=== PATIENT | female | born 1990 | race Caucasian/White ===

== ENCOUNTER 2024-09-20 14:35 | Inpatient (IN) | payer BC, SELFPAY ==
[2024-09-20 08:20] VITALS: BP 129/91
--- NOTE | 2024-09-20 08:28 | ED.GENMED ---
History of Present Illness
General
Chief Complaint: Abdominal Symptoms
Source: patient
Exam Limitations: none
Time Seen by Provider: 09/20/24 08:27
Nursing documentation reviewed up to this point in time: agreed with
History of Present Illness
History of Present Illness:
33-year-old female with history of Crohn's disease, POTS, OCD presents for mucus stools, decreased appetite, pain across lower abdomen similar to her previous Crohn's flares. Symptoms started 13 days ago with increase in number of stools with mucus
and urgency to defecate to now mucus stools with 'a little blood,' and pain across her lower abdomen. Saw GI doctor at [facility] 3 days ago and started on Prednisone 40 mg daily (had 3 doses) and states it is not helping. Pain now 09/04. Denies
fever/chills. Denies n/v.
She also mentions she had two periods this month, 4 days each on 08/31 and 09/14 which hasn't happened before and she thinks it's from 'the inflamation.'
Past History
Past History
ED Past Medical History: Other (POTS, Crohn's disease)
ED Past Surgical History: Orthopedic
Social History
Tobacco: Non-smoker
Alcohol: None
Employment: Not employed
Review of Systems
Review of Systems
Allergies reviewed?: Yes
All Other Systems: ROS reviewed and negative except as documented in HPI and ROS
Constitutional: Denies fever or chills
ABD/GI: Reports abdominal pain, diarrhea ('with a little blood') and anorexia; Denies nausea or vomiting
: Denies dysuria, bleeding or discharge
Musculoskeletal: Reports no symptoms
Skin: Reports no symptoms
Neurological: Reports no symptoms
Phy Exam
Physical Exam
Physical Exam:
General: Alert, in no acute distress.
Skin: Warm, dry.
Neck: Supple
Eyes, Ears, Nose, Mouth, and Throat: Oral mucosa moist.
Cardiovascular: Normal peripheral perfusion, no edema.
Respiratory: Respirations are non-labored.
Gastrointestinal: Soft, Abdomen nondistended; tender throughout the lower gastrointestinal region
Back: Normal range of motion, normal alignment.
Musculoskeletal: Normal range of motion, normal strength.
Neurological: Alert and oriented to person, place, time, and situation, no focal neurological deficit observed.
Psychiatric: Cooperative, appropriate mood and affect.
Course
Orders/Labs/Results
Orders:
Orders
09/20/24 Breakfast
Full Liquids
At Your Request: Full Participation
Does patient need a safe tray?: No
09/20/24 08:39
Test Result ONCE
09/20/24 08:40
0.9% Sodium Chloride 1000 ml [Nss] 1,000 ml IV BOLUS
09/20/24 08:55
C-Reactive Protein Urgent
Comment: ADD ON
Complete Blood Count/With Diff Urgent
Comprehensive Metabolic Panel Urgent
HCG, Serum Qualitative Screen Urgent
Urinalysis Reflex To Culture Urgent
Date Specimen was Collected: 09/20/24
Time Specimen was Collected: 08:53
09/20/24 08:58
Dexamethasone Sod Phosphate [Decadron] 20 mg .ROUTE .STK-MED ONE
09/20/24 10:09
CT Abd/pelvis W Iv Cont Urgent
Comment: Pt refusing po contrast, it 'aggravates' her bowel
Reason For Exam: pain, Crohn's,
09/20/24 10:10
Add On- LAB Urgent
Tests Added?: CRP
09/20/24 13:46
Tramadol HCl [Ultram] 50 mg PO NOW STA
09/20/24 13:49
GASTROINTESTINAL CONSULT Routine
Consulting Provider: Ronaldo Chu
Was physician already notified: Yes
Reason for consult: Crohn's flare
09/20/24 13:50
Admit/Transfer Patient As Directed
Co-Sign Provider:
Level of Care: Inpatient admission
Assign to:: Medical/Surgical
Physician / Group: Rafaela Bowden
Diagnosis: Crohn's Flare failed outpt treatment
Reason for Hospitalization: Crohn's Flare failed outpt treatment
Expected length of stay greater than two midnights?: Yes
ELOS- Estimated Length of Stay in days: 2
I certify the patient meets the requirements for IP care: Yes
PRN Pain Medication Management As Directed
May give lesser potent ordered pain med per pt: Yes
preference::
Protocol:: Medication orders for pain may be administered in a
manner that supports deferring to patient preference
when the pt is:
- Requesting an ordered lesser potent pain medication.
Least to most potent pain medications are defined
as: acetaminophen < NSAID < tramadol < opioids
(morphine, oxycodone, hydromorphone).
- Requesting a lesser dose of the same medication IF
ORDERED.
- Requesting a less intrusive route of administration
if both routes are prescribed by the provider (PO <
IV).
09/20/24 13:56
Code Status As Directed
Resuscitation Status: Full Code
09/20/24 14:00
Dexamethasone Sod Phosphate [Decadron] 4 mg IV Q6H
09/20/24 16:00
Acetaminophen [Tylenol] 650 mg PO Q4HWA
Abnormal Lab Results
09/20/24
08:55
WBC 11.0 H 10^3/uL
(4.8-10.8)
MCH 31.7 H pg
(27.0-31.0)
MPV 10.9 H fL
(7.4-10.4)
Abs Immat Gran (auto) 0.1 H 10^3/uL
(0-0.05)
Absolute Neuts (auto) 8.3 H 10^3/uL
(1.4-6.5)
Absolute Monos (auto) 0.9 H 10^3/uL
(0.1-0.6)
Lymphocytes % 15.8 L %
(20.5-51.1)
Glucose 100 H mg/dl
(70-99)
09/20/24 08:55
09/20/24 08:55
Vital Signs
Initial and Last Documented VS:
Initial Vital Signs
Temp Pulse Resp BP Pulse Ox
97.8 F 68 16 129/91 98
09/20/24 08:20 09/20/24 08:20 09/20/24 08:20 09/20/24 08:20 09/20/24 08:20
Last Documented Vital Signs
Temp Pulse Resp BP Pulse Ox
97.8 F 68 16 99/63 98
09/20/24 08:20 09/20/24 08:20 09/20/24 08:20 09/20/24 10:00 09/20/24 10:00
MDM/Problems Addressed
Differential Diagnosis Includes:
The Differential Diagnosis includes, in no particular order and is not limited to:
- Crohns disease exacerbation
- Ulcerative colitis
- Infectious colitis
- Irritable bowel syndrome
- Diverticulitis
- Celiac disease
- Gastroenteritis
- Ischemic colitis
- Inflammatory bowel disease
MDM/Problems Addressed:
33-year-old female with history of Crohn's disease, POTS, OCD presents for mucus stools, decreased appetite, pain across lower abdomen similar to her previous Crohn's flares. Symptoms started 13 days ago with increase in number of stools with mucus
and urgency to defecate to now mucus stools with 'a little blood,' and pain across her lower abdomen. Saw GI doctor at [facility] 3 days ago and started on Prednisone 40 mg daily (had 3 doses) and states it is not helping. Pain now 09/04. Denies
fever/chills. Denies n/v.
She also mentions she had two periods this month, 4 days each on 08/31 and 09/14 which hasn't happened before and she thinks it's from 'the inflammation.'
Afebrile, NAD
Plan:
- Blood work to assess for dehydration or malnutrition, with potential administration of intravenous fluids.
- Consider administration of intravenous Decadron if deemed necessary following lab results.
CBC with no clinically significant abnormality
CMP normal
hCG negative
11:[address] abdomen pelvis with IV only contrast radiology report reviewed: IMPRESSION: Mild to moderate wall thickening diffusely involving the entire colon, with stranding of the adjacent fat. These findings are compatible with colitis, which is most
likely on the basis of inflammatory bowel disease. Infectious colitis would be a differential consideration.
No gross evidence for small bowel wall thickening, given the limitation of a lack of GI luminal contrast agent.
There appears to be thickening of the gastric wall, suggestive of gastritis, most likely on the basis of inflammatory bowel disease.
No evidence for bowel obstruction or free intraperitoneal air.
Small amount of free fluid within the pelvis.
Periportal edema is present, most commonly seen with intravenous fluid administration in young patient. Main differential consideration of hepatocellular dysfunction.
Plan: Admit: Crohn's flare, failing out patient steroids.
Hospitalist notified of admission.
*Pulse Oximetry
SaO2: 98
Oxygen Mode of Delivery: Room air
Patient hypoxic: not evaluated
*Critical Care Note
Total Time (30-74mins, 75-104mins- exclusive of procedures): Not Applicable
ED Attending Note
-
Portions of this chart may have been created with voice recognition software.� Occasional wrong word or��sound alike� substitutions may have occurred due to the inherent limitations of voice recognition software.
Discharge Plan
Departure
Patient Disposition: Admit
Date of Disposition: 09/20/24
Time of Disposition: 11:15
Admit to: Med/Surg
Presentation/result/management discussed w/ accepting MD/DO: Hospitalist
Condition: Fair
Discharge Problem:
Crohn's colitis
Interventions
Interventions:
*Risk Screen - Suicide Last Done: 09/20/24 08:20
*Neglect/Abuse Screening Last Done: 09/20/24 08:20
[2024-09-20 09:02] LABS: Hematocrit 39.7 % (37.0-47.0); Hemoglobin 13.7 g/dL (12.0-16.0); Mean Corp Hgb Conc. 34.5 g/dL (33.0-37.0); Mean Corpuscular Volume 91.9 fL (81.0-99.0); Nucleated Red Blood Cells % 0 %; Platelet Count 213 10^3/uL (130-400); Red Cell Dist. Width 11.8 % (11.5-14.5)
[2024-09-20 09:20] LABS: HCG, Serum Qualitative Screen Negative
[2024-09-20 09:32] LABS: ALT (SGPT) 20 U/L (0-35); AST (SGOT) 24 U/L (14-36); Albumin 4.9 g/dl (3.5-5.0); Alkaline Phosphatase 57 U/L (38-126); Blood Urea Nitrogen 12 mg/dl (7-17); Calcium 9.6 mg/dl (8.4-10.2); Carbon Dioxide 30 mmol/L (22-30); Chloride 100 mmol/L (98-107); Glucose 100 mg/dl (70-99); Potassium 3.9 mmol/L (3.5-5.1); Sodium 138 mmol/L (135-145); Total Protein 8.0 g/dl (6.3-8.2); eGFR > 60.00
[2024-09-20 10:00] VITALS: BP 99/63
[2024-09-20 10:21] LABS: Urine Character Clear (Clear)
[2024-09-20] MEDS: NSS 1000 IV (11:16)
--- NOTE | 2024-09-20 11:31 | HPS.HSE ---
Family Physician
-
Family Physician: Osman Eli
Chief Complaint
-
Abd pain
History of Present Illness
33F Crohn's disease, POTS, OCD presents for mucus stools, decreased appetite, pain across lower abdomen similar to her previous Crohn's flares. Symptoms started 13 days ago with increase in number of stools mucus and urgency to defecate. Notes some
light blood streaks on wiping. Saw GI doctor at [place] 3 days ago and was started on Prednisone 40 mg daily. Noted no relief, prompting ED visit. VSS on room air. Mild leukocytosis (not unexpected with steroid use) otherwise labs unremarkable. CT
suggestive colitis
Medical History
Past Medical History
Past Medical History: Reports Other
Additional Past Medical History:
as above
Past Surgical History: Reports Other
Additional Past Surgical History:
as above
Social History
Tobacco: Non-smoker
Alcohol: None
Drug: None
Personal:
Living: With Family
Family History
Family History: Not pertinent (reviewed)
Allergies / Home Medications
Allergies reflects when Allergies were last updated in [facility].
Home Medications with original date entered in [facility]
Allergy/Medication List:
Allergies
Allergy/AdvReac Type Severity Reaction Status Date / Time
NSAIDS (Non-Steroidal Allergy Severe Swelling Verified 09/20/24 08:19
Anti-Inflamma
aspirin Allergy Swelling Verified 09/20/24 08:19
Home Medications
Lactobac no.2-Bifidobac no.1-S. thermo 112.5 billion cell capsule (Visbiome) 1 cap PO DAILY 09/20/24
Ladywell Daily Hormone Balance 2 cap PO DAILY 09/20/24
acetaminophen 500 mg tablet 1,000 mg PO DAILYPRN PRN mild pain 09/20/24
dicyclomine 10 mg capsule 10 mg PO QIDPRN PRN cramps 09/20/24
diphenhydramine HCl 25 mg capsule (Benadryl) 25 mg PO HS 09/20/24
fexofenadine 180 mg tablet 180 mg PO DAILY 09/20/24
guselkumab 200 mg/2 mL subcutaneous pen injector (Tremfya Pen) 400 mg SC Q4W 09/20/24
ou-cbl-xajjx 120 mcg-biotin 1,250 mcg-K1 60 nsy-zdartihy-pijh capsule (Hair, Skin And Nails (Herbs)) 1 cap PO DAILY 09/20/24
omega 7-xxd-oks-fish oil 900 mg-1,400 mg capsule,delayed release 1 cap PO DAILY 09/20/24
peppermint oil 90 mg capsule,delayed,extended release (IBgard) 90 mg PO DAILY 09/20/24
prednisone 10 mg tablet 40 mg PO DAILYPRN PRN crohn's flare 09/20/24
vits no.133-ferrous fumarate 28 mg-folic acid 800 mcg tablet () 1 tab PO DAILY 09/20/24
sertraline 25 mg tablet 25 mg PO DAILYPRN PRN nausea 09/20/24
triamcinolone acetonide 0.1 % topical cream 1 applic topical BIDPRN PRN rash 09/20/24
turmeric 400 mg capsule 400 mg PO DAILY 09/20/24
zinc gluconate 30 mg tablet 30 mg PO DAILY 09/20/24
Review of Systems
-
A 12 point ROS was completed and negative except as noted: Yes
Constitutional: Reports Other (as below)
Physical Exam
Vital Signs
Vital Signs
Temp Pulse Resp BP Pulse Ox
97.8 F 68 16 129/91 98
09/20/24 08:20 09/20/24 08:20 09/20/24 08:20 09/20/24 08:20 09/20/24 08:29
Physical Exam
General: Other (as below)
Laboratory Results
-
09/20/24 08:55
09/20/24 08:55
Laboratory Results
Total Bilirubin 0.4 mg/dl (0.2-1.3) 09/20/24 08:55
AST 24 U/L (14-36) 09/20/24 08:55
ALT 20 U/L (0-35) 09/20/24 08:55
Alkaline Phosphatase 57 U/L (38-126) 09/20/24 08:55
Impression/Plan
-
ROS
General: Denies fever chills night sweats unexpected weight loss
Neuro: Denies seizure shaking loss of consciousness dizziness vertigo
Psych: denies depression hallucinations confusion manic episodes
Endocrine: Denies polyuria polydipsia polyphagia heat/cold intolerance
HEENT: Denies blindness visual disturbances epistaxis
Pulmonary: denies coughing hemoptysis sneezing sob dyspnea on exertion
Cardiovascular: denies chest pain palpitations leg swelling
Hematology: denies signs symptoms of anemia easy bruising/bleeding
Gastrointestinal: reports abd pain diarrhea, notes light blood streaks on wiping, intermittent nausea no vomiting,
Genito-Urinary: denies retention incontinence dysuria
Musculoskeletal: denies joint pain weakness
Dermatology: denies rash laceration bruising
Physical Exam
General: No pallor, cyanosis, or jaundice.
HEENT: Throat clear. PERRLA Normocephalic atraumatic
NECK: Supple. No JVD Carotid Bruits
RESPIRATORY: Lungs clear to auscultation. No crackles wheezes stridor
CVS: S1, S2 normal. RRR. No murmur, rub or gallop.
ABDOMEN: Soft, no distension, tenderness, decreased bowel sounds
EXTREMITIES: No peripheral cyanosis or edema.
ENDOSCOPY SPECIALTY TECHNICIAN: AOx3 Conversant Coherent
IMPRESSION:
33F Crohn's disease, POTS, OCD presents for mucus stools, decreased appetite, pain across lower abdomen similar to her previous Crohn's flares. Symptoms started 13 days ago with increase in number of stools mucus and urgency to defecate. Notes some
light blood streaks on wiping. Saw GI doctor at [place] 3 days ago and was started on Prednisone 40 mg daily. Noted no relief, prompting ED visit. VSS on room air. Mild leukocytosis (not unexpected with steroid use) otherwise labs unremarkable. CT
suggestive colitis
PLAN:
#Crohn's Flare failed outpt tx
med/surg
pain control Tylenol 650 mg Q4HWA, Tramadol prn mod severe pain, Dilaudid severe breakthrough pain
IV Decadron 4 mg Q6H
GI eval
Full Liquid Diet
Bentyl prn cramping
DVT ppx SCDs/encourage ambulation
GI ppx Protonix
Full Code
I spent a total of 80 minutes with the patient or on the floor. More than 50% of this time involved counseling and coordination of care.
[2024-09-20 12:27] LABS: C-Reactive Protein < 5.00 mg/L (0.0-10.00)
--- NOTE | 2024-09-20 14:29 | CM ---
CM reviewed chart and met with pt bedside in ED. Lives with in 2 story home, 2 CAMMY, half BA first floor, full flight of steps to second floor BR/full BA.
Independent in ADLs, personal care and ambulation at baseline.
HX VN for home infusion, no hx SNF, confirms prescription coverage.
PCP: Osman Eli. Also see Dr. Armstrong at [facility]
Pharmacy: [address] [place]
CM will continue to follow for any discharge planning needs.
[2024-09-20] MEDS: DECADRON 4 MG IV (14:45)
[2024-09-20] MEDS: ULTRAM 50 MG PO ×2 (14:45→23:21)
[2024-09-20 16:00] VITALS: BP 125/81
--- NOTE | 2024-09-20 16:30 | CON.GI ---
Consultation
-
Date/Time Consultation Requested: 09/20/2024, 1349
Date/Time Consultation Performed: 09/20/2024, 1630
Requesting Provider: Rafaela Bowden MD
Performing Provider: Ronaldo Chu DO
Reason for Consultation: Crohn's Flare
Medical History
Chief Complaint / HPI
Chief Complaint: Abdominal symptoms
History of Present Illness:
Ms Sutton is a 33 y.o female with a past medical history of OCD, POTS, and Crohn's colitis (diagnosed 11 years ago, recently started on Tremfya08/27/2024) who presented to the ED with abdominal pain and diarrhea. Found to have mild to moderate wall
thickening throughout the entire colon concerning for Crohn's flare for which GI has been consulted for further evaluation and management.
No prior GI records available for review thus history largely obtained in discussing with patient at bedside. Patient states longstanding Crohn's disease diagnosed approximate 11 years ago which was previously well-controlled on Stelara for several
years. She follows Dr. Armstrong at [facility] who is her primary food counselor/IBD doctor. She notes she was on Stelara from 2017 up till about 2023 where her disease was in remission in regards to her Crohn's colitis. However, eventually had
recurrent disease activity where her Stelara was eventually stopped and she was previously tried on Cimzia as well as Skyrizi. However, she failed both of these and was eventually started on RINVOQ around November 2023 with eventual remission.
However, she was trying to become again as she previously had a miscarriage in the past. In discussion with her IBD doctor in hopes of eventually becoming , she stopped her written RINVOQ around mid August and was started on Tremfya
on 08/27/2024. She notes about 1-2 weeks later after stopping her RINVOQ, she developed lower abdominal discomfort as well as loose, nonbloody watery stools. She previously followed up with Dr. Armstrong this past and was started on prednisone
40 mg once daily in hopes of getting her symptoms under control given her recently started Tremfya but not felt to represent a treatment failure as she only received her first induction dose back on 08/27/2024. Given her ongoing bowel movements (up
to 15 yesterday), poor p.o. intake as well as her lower abdominal pain consistent with her previous Crohn's flares she came into the ED for further evaluation as she notes previously responding well to IV steroids in the past. Denies any prior
history of C Diff. Otherwise, she denies any sick contact or other fevers, chills or other constitutional symptoms.
In the ED, patient was afebrile and HD-stable. Labs notable for BUN 12, [employer] 0.7 and normal LFTs including albumin 4.9. UA negative. CBC with WBC 11k, Hgb 13.7, and plts 213. CT Abd/pelvis revealed mild to moderate wall thickening involving the
entire colon, with stranding of the adjacent fat. These findings are are compatible with colitis, felt to be IBD versus infectious. Otherwise, no SB wall thickening. Additionally, found to have thickening of the gastric wall suggestive of gastritis
suspicious for IBD along with periportal edema.
Past Medical History
Past Medical History: Other (Crohn's colitis, OCD, POTS)
Past Surgical History: None
Social History
Tobacco: Non-Smoker
Alcohol: None
Personal:
Living: With Family
Family History
Family History: Reviewed & Not Pertinent
Allergies / Home Medications
Allergy/AdvReac Type Severity Reaction Status Date / Time
NSAIDS (Non-Steroidal Allergy Severe Swelling Verified 09/20/24 08:19
Anti-Inflamma
aspirin Allergy Swelling Verified 09/20/24 08:19
�Medication �Instructions �Recorded
Lactobac no.2-Bifidobac no.1-S. 1 cap PO DAILY Supplement 09/20/24
thermo 112.5 billion cell capsule
(Visbiome)
Ladywell Daily Hormone Balance 2 cap PO DAILY Supplement 09/20/24
acetaminophen 500 mg tablet 1,000 mg PO DAILYPRN PRN mild pain 09/20/24
dicyclomine 10 mg capsule 10 mg PO QIDPRN PRN cramps 09/20/24
diphenhydramine HCl 25 mg capsule 25 mg PO HS Sleep 09/20/24
(Benadryl)
fexofenadine 180 mg tablet 180 mg PO DAILY Allergies 09/20/24
guselkumab 200 mg/2 mL 400 mg SC Q4W Crohn's Disease 09/20/24
subcutaneous pen injector (Tremfya
Pen)
ed-hiw-jqfos 120 mcg-biotin 1,250 1 cap PO DAILY Supplement 09/20/24
mcg-K1 60 toh-cwvqbyuy-xiyy
capsule (Hair, Skin And Nails
(Herbs))
omega 3-lge-xvg-fish oil 900 1 cap PO DAILY Supplement 09/20/24
mg-1,400 mg capsule,delayed release
peppermint oil 90 mg 90 mg PO DAILY Supplement 09/20/24
capsule,delayed,extended release
(IBgard)
prednisone 10 mg tablet 40 mg PO DAILYPRN PRN crohn's flare 09/20/24
vits no.133-ferrous 1 tab PO DAILY Supplement 09/20/24
fumarate 28 mg-folic acid 800 mcg
tablet ()
sertraline 25 mg tablet 25 mg PO DAILYPRN PRN nausea 09/20/24
triamcinolone acetonide 0.1 % 1 applic topical BIDPRN PRN rash 09/20/24
topical cream
turmeric 400 mg capsule 400 mg PO DAILY Supplement 09/20/24
zinc gluconate 30 mg tablet 30 mg PO DAILY Supplement 09/20/24
Review of Systems
-
All other systems: A 12 pt ROS was Negative except as stated above in HPI
Vital Signs
Temp Pulse Resp BP Pulse Ox
97.8 F 68 16 99/63 98
09/20/24 08:20 09/20/24 08:20 09/20/24 08:20 09/20/24 10:00 09/20/24 10:00
Physical Exam
Exam
General: Well Developed, No Apparent Distress and Comfortable
HEENT: Anicteric and Moist Mucous Membranes
Respiratory: Other (Normal WOB on room air)
Cardiac: Other (RR on tele)
GI: Soft, Non Distended and Tender (Mild tenderness throughout without any involuntary guarding or rebound tenderness)
Skin: Warm and Dry
Neuro: AO x 3 and Nonfocal/Grossly Intact
Psych: Calm
Results
WBC 11.0 10^3/uL (4.8-10.8) H 09/20/24 08:55
Hgb 13.7 g/dL (12.0-16.0) 09/20/24 08:55
Hct 39.7 % (37.0-47.0) 09/20/24 08:55
MCV 91.9 fL (81.0-99.0) 09/20/24 08:55
Plt Count 213 10^3/uL (130-400) 09/20/24 08:55
Absolute Neuts (auto) 8.3 10^3/uL (1.4-6.5) H 09/20/24 08:55
Sodium 138 mmol/L (135-145) 09/20/24 08:55
Potassium 3.9 mmol/L (3.5-5.1) 09/20/24 08:55
Chloride 100 mmol/L (98-107) 09/20/24 08:55
Carbon Dioxide 30 mmol/L (22-30) 09/20/24 08:55
BUN 12 mg/dl (7-17) 09/20/24 08:55
Creatinine 0.7 mg/dL (0.6-1.0) 09/20/24 08:55
Calcium 9.6 mg/dl (8.4-10.2) 09/20/24 08:55
Total Bilirubin 0.4 mg/dl (0.2-1.3) 09/20/24 08:55
AST 24 U/L (14-36) 09/20/24 08:55
ALT 20 U/L (0-35) 09/20/24 08:55
Alkaline Phosphatase 57 U/L (38-126) 09/20/24 08:55
Diagnostic Image Results: CT imaging reviewed as detailed above. No prior EGD/Colon records available for review
Assessment / Plan
-
Ms Sutton is a 33 y.o female with a past medical history of OCD, POTS, and Crohn's colitis (diagnosed 11 years ago, recently started on Tremfya08/27/2024) who presented to the ED with abdominal pain and diarrhea. Found to have mild to moderate wall
thickening throughout the entire colon concerning for Crohn's flare for which GI has been consulted for further evaluation and management.
#Abdominal Pain #Diarrhea 03/30
#Crohn's Flare
#Hx of Crohn's Colitis (dx 11 years ago, recently started on Tremfya 08/2024)
Impression: Patient presenting with symptoms consistent with her Crohn's flare in setting of recently stopping her RINVOQ (mid-August) and starting Tremfya on 08/27/2024. She was previously in remission with RINVOQ in the past which was started back
on 11/2023. However, in hopes of becoming again (as she has had prior miscarriage in the past) her RINVOQ was discontinued as contraindicated in and was started on Tremfya. Would not consider this a treatment failure as she only
received her first induction dose back on 08/27/2024. Was started on oral Prednisone 40 mg as an outpatient earlier this week but having ongoing symptoms necessitating inpatient need for IV steroids. CT imaging with mild to moderate wall thickening
involving the entire colon consistent with pancolitis on admission. Mild leukocytosis and possibly from her previous oral steroids. Favor ongoing treatment with IV steroids while ruling out infectious causes although seems much less likely and
consistent with worsening disease activity secondary to stopping her RINVOQ and starting her Tremfya (anti-IL23). Of note, no prior history of C. difficile in the past.
Recommendations:
- Okay with CLD
- Check stool studies: stool culture, stool O&P, C Diff
- Start IV Methylpred 20 mg TiD
- Empiric PPI 40 mg BiD given mild gastritis noted on CT imaging
- Monitor leukocytosis, defer antibiotics at this time and likely reactive versus steroid-induced from her prior oral steroids
- Trend serial CRPs q 48 hrs
- No plans for any flex-sig/colonoscopy at this time
- She will be due for her next dose of Temfya next Sunday on 09/24 and hopeful for discharge prior to this so she may receive her second dose of induction therapy
- Will discuss with her IBD physician (Dr. Armstrong) early next week as well
- Minimize opioids as much as possible, okay with Bentyl and standing acetaminophen
- Ensure chemical VTE ppx while inpatient given IBD
- Rest of care as per primary team
GI will continue to follow. Discussed with primary internal medicine. Please call with any questions/concerns.
Data Reviewed
-
Radiology: Image Personally Visualized and interpreted and Report Reviewed by me
CT Scan: Image Personally Visualized and interpreted and Report Reviewed by me
-
-
Thank you for consultation and allowing me to participate in the patient's care. Please call the stoner out GI physician during the after hours with any questions or concerns.
[2024-09-20 18:00] VITALS: BP 129/75
[2024-09-20] MEDS: TYLENOL 650 MG PO ×2 (18:25→23:21)
[2024-09-20] MEDS: SOLU-MEDROL PF 20 MG IV ×2 (18:26→23:15)
[2024-09-20 19:32] VITALS: BP 116/75
[2024-09-20] MEDS: TYLENOL PO (19:36)
[2024-09-20] MEDS: NSS (PRESERVATIVE FREE) 10 ML IV (20:28)
[2024-09-20] MEDS: LOVENOX 40 MG SC (20:28)
[2024-09-20] MEDS: PROTONIX IV 40 MG IV (20:28)
[2024-09-20] MEDS: BENADRYL 25 MG PO (22:24)
[2024-09-20 23:23] VITALS: BP 117/67
[2024-09-21] MEDS: TYLENOL PO ×2 (04:38→12:47)
--- NOTE | 2024-09-21 05:51 | W.PN.GI.CBS2 ---
Today's Communication / Plan
-
Continue IV steroids while inpatient and favor for at least 48-72 hours of IV steroids prior to transitioning back to oral prednisone. Much less likely C Diff, but send stool studies once able to have BM. See rest of care as outlined below.
Assessment / Plan
-
Ms Sutton is a 33 y.o female with a past medical history of OCD, POTS, and Crohn's colitis (diagnosed 11 years ago, recently started on Tremfya08/27/2024) who presented to the ED with abdominal pain and diarrhea. Found to have mild to moderate wall
thickening throughout the entire colon concerning for Crohn's flare for which GI has been consulted for further evaluation and management.
#Abdominal Pain #Diarrhea 03/30
#Crohn's Flare
#Hx of Crohn's Colitis (dx 11 years ago, recently started on Tremfya 08/2024)
Impression: Patient presenting with symptoms consistent with her Crohn's flare in setting of recently stopping her RINVOQ (mid-August) and starting Tremfya on 08/27/2024. She was previously in remission with RINVOQ in the past which was started back
on 11/2023. However, in hopes of becoming again (as she has had prior miscarriage in the past) her RINVOQ was discontinued as contraindicated in and was started on Tremfya. Would not consider this a treatment failure as she only
received her first induction dose back on 08/27/2024. Was started on oral Prednisone 40 mg as an outpatient earlier this week but having ongoing symptoms necessitating inpatient need for IV steroids. CT imaging with mild to moderate wall thickening
involving the entire colon consistent with pancolitis on admission. Mild leukocytosis and possibly from her previous oral steroids. Favor ongoing treatment with IV steroids while ruling out infectious causes although seems much less likely and
consistent with worsening disease activity secondary to stopping her RINVOQ and starting her Tremfya (anti-IL23). Of note, no prior history of C. difficile in the past.
Recommendations:
- Okay with CLD, may advance slowly as tolerated
- Check stool studies: stool culture, stool O&P, C Diff- once patient is able to have a BM
- Continue IV Methylpred 20 mg TiD (09/20- )
- Empiric PPI 40 mg BiD given mild gastritis noted on CT imaging
- Monitor leukocytosis, defer antibiotics at this time and likely reactive versus steroid-induced from her prior oral steroids
- Trend serial CRPs q 48 hrs
- No plans for any flex-sig/colonoscopy at this time
- She will be due for her next dose of Temfya (injection) next Sunday on 09/24 and hopeful for discharge prior to this so she may receive her second dose of induction therapy
- Will discuss with her IBD physician (Dr. Armstrong) early next week as well
- Minimize opioids as much as possible, okay with Bentyl and standing acetaminophen
- Ensure chemical VTE ppx while inpatient given IBD
- Rest of care as per primary team
GI will continue to follow. Please call with any questions/concerns.
Subjective
Subjective
Date of Service: September 21, 2024
- Started on IV Methylpred 20 mg TiD on 09/20-
- Otherwise, no acute events overnight
Feeling well, resting comfortably. Still with mild lower abdominal pain but denies any worsening symptoms. Using heating pad this AM which seems to help. No recent diarrhea overnight or this AM.
Objective
Data Reviewed
Laboratory Data:
Laboratory Results
Total Bilirubin 0.4 mg/dl (0.2-1.3) 09/20/24 08:55
AST 24 U/L (14-36) 09/20/24 08:55
ALT 20 U/L (0-35) 09/20/24 08:55
Alkaline Phosphatase 57 U/L (38-126) 09/20/24 08:55
Vital Signs and I&O:
Vital Signs
Temp Pulse Resp BP Pulse Ox
98 F 67 18 117/67 100
09/20/24 23:23 09/20/24 23:23 09/20/24 23:23 09/20/24 23:23 09/21/24 00:49
Physical Exam
Physical Exam
HEENT: Anicteric and Moist mucous membranes
Pulmonary: Other (Normal WOB on room air)
GI: Soft, Non Distended and Tender (Mild tenderness to palpation but without any rebound or involuntary guarding)
Extremities: No Edema
Neuro: Non Focal
[2024-09-21 07:17] LABS: Hematocrit 37.1 % (37.0-47.0); Hemoglobin 13.0 g/dL (12.0-16.0); Mean Corp Hgb Conc. 35.0 g/dL (33.0-37.0); Mean Corpuscular Volume 92.8 fL (81.0-99.0); Platelet Count 222 10^3/uL (130-400); Red Cell Dist. Width 11.6 % (11.5-14.5)
[2024-09-21 07:44] LABS: ALT (SGPT) 16 U/L (0-35); AST (SGOT) 20 U/L (14-36); Albumin 4.2 g/dl (3.5-5.0); Alkaline Phosphatase 52 U/L (38-126); Blood Urea Nitrogen 10 mg/dl (7-17); Calcium 9.3 mg/dl (8.4-10.2); Carbon Dioxide 27 mmol/L (22-30); Chloride 104 mmol/L (98-107); Glucose 122 mg/dl (70-99); Magnesium 2.2 mg/dl (1.6-2.3); Potassium 4.1 mmol/L (3.5-5.1); Sodium 138 mmol/L (135-145); Total Protein 6.8 g/dl (6.3-8.2); eGFR > 60.00
--- NOTE | 2024-09-21 07:49 | W.PN.HOSP.TC ---
Today's Communication/Plan
-
steroids PPI as per GI
Full Liquid diet, ok to advance as tolerated
Pain control
Follow stool studies
Assessment / Plan
Assessment / Plan
Physical Exam
General: No pallor, cyanosis, or jaundice.
HEENT: Throat clear. PERRLA Normocephalic atraumatic
NECK: Supple. No JVD Carotid Bruits
RESPIRATORY: Lungs clear to auscultation. No crackles wheezes stridor
CVS: S1, S2 normal. RRR. No murmur, rub or gallop.
ABDOMEN: Soft, no distension, tenderness, decreased bowel sounds
EXTREMITIES: No peripheral cyanosis or edema.
PATIENT PORTAL CONCIERGE: AOx3 Conversant Coherent
IMPRESSION:
33F Crohn's disease, POTS, OCD presents for mucus stools, decreased appetite, pain across lower abdomen similar to her previous Crohn's flares. Symptoms started 13 days ago with increase in number of stools mucus and urgency to defecate. Notes some
light blood streaks on wiping. Saw GI doctor at [place] 3 days ago and was started on Prednisone 40 mg daily. Noted no relief, prompting ED visit. VSS on room air. Mild leukocytosis (not unexpected with steroid use) otherwise labs unremarkable. CT
suggestive colitis
PLAN:
#Crohn's Flare failed outpt tx
med/surg
pain control Tylenol 650 mg Q4HWA, Tramadol prn mod severe pain, Dilaudid severe breakthrough pain
Bentyl prn cramping
GI eval appreciated solumedrol IV 20 mg TID, PPI BID
Full Liquid Diet for now, ok to advance as tolerated
Follow stool studies, neg cdiff cryptosporidium/giardia, rest of stool studies pending
DVT ppx SCDs/encourage ambulation
GI ppx Protonix
Full Code
Discussed with patient and patient's Trent
I spent a total of 45 minutes with the patient or on the floor. More than 50% of this time involved counseling and coordination of care.
Anticipated Discharge: 24 - 48 hours
Subjective/Interval History
-
Date of Service: September 21, 2024
No acute distress sitting up comfortably in bed. Pain persists but manageable with current pain regimen.
Objective Data
-
Labs:
Laboratory Results
09/21/24
06:20
WBC 12.8 H
Hgb 13.0
Hct 37.1
Plt Count 222
Sodium 138
Potassium 4.1
Chloride 104
Carbon Dioxide 27
BUN 10
Creatinine 0.6
Glucose 122 H
Calcium 9.3
Total Bilirubin 0.4
AST 20
ALT 16
Alkaline Phosphatase 52
Vital Signs:
Vital Signs
Temp Pulse Resp BP Pulse Ox
98 F 67 18 117/67 100
09/20/24 23:23 09/20/24 23:23 09/20/24 23:23 09/20/24 23:23 09/21/24 00:49
I&O
09/20/24 09/21/24 09/22/24
06:59 06:59 06:59
Intake Total 480 / 480
Balance 480 / 480
[2024-09-21 07:50] LABS: C-Reactive Protein < 5.00 mg/L (0.0-10.00)
[2024-09-21 07:55] VITALS: BP 101/63
[2024-09-21] MEDS: SOLU-MEDROL PF 20 MG IV ×2 (08:18→16:04)
[2024-09-21] MEDS: TYLENOL 650 MG PO ×3 (08:19→20:23)
[2024-09-21] MEDS: ULTRAM 50 MG PO ×2 (08:19→22:56)
[2024-09-21] MEDS: CLARITIN 10 MG PO (08:20)
[2024-09-21] MEDS: PROTONIX IV 40 MG IV ×2 (08:20→20:26)
[2024-09-21] MEDS: NSS (PRESERVATIVE FREE) 10 ML IV ×2 (08:20→20:25)
[2024-09-21] MEDS: VISBIOME 1 CAP PO (08:21)
[2024-09-21] MEDS: BENTYL 10 MG PO (09:26)
[2024-09-21 15:35] VITALS: BP 105/66
[2024-09-21] MEDS: LOVENOX 40 MG SC (18:05)
[2024-09-21] MEDS: BENADRYL 25 MG PO (22:55)
[2024-09-21 23:19] VITALS: BP 117/72
[2024-09-22] MEDS: SOLU-MEDROL PF 20 MG IV ×3 (00:02→15:37)
[2024-09-22] MEDS: TYLENOL PO ×3 (00:05→20:37)
--- NOTE | 2024-09-22 05:42 | W.PN.GI.CBS2 ---
Today's Communication / Plan
-
Advance diet as tolerated to low-fiber, low-residue diet. Continue IV steroids today and plan to transition to oral prednisone tomorrow. See rest of care as outlined below.
Assessment / Plan
-
Ms Sutton is a 33 y.o female with a past medical history of OCD, POTS, and Crohn's colitis (diagnosed 11 years ago, recently started on Tremfya08/27/2024) who presented to the ED with abdominal pain and diarrhea. Found to have mild to moderate wall
thickening throughout the entire colon concerning for Crohn's flare for which GI has been consulted for further evaluation and management.
#Abdominal Pain #Diarrhea 03/30
#Crohn's Flare
#Hx of Crohn's Colitis (dx 11 years ago, recently started on Tremfya 08/2024)
Impression: Patient presenting with symptoms consistent with her Crohn's flare in setting of recently stopping her RINVOQ (mid-August) and starting Tremfya on 08/27/2024. She was previously in remission with RINVOQ in the past which was started back
on 11/2023. However, in hopes of becoming again (as she has had prior miscarriage in the past) her RINVOQ was discontinued as contraindicated in and was started on Tremfya. Would not consider this a treatment failure as she only
received her first induction dose back on 08/27/2024. Was started on oral Prednisone 40 mg as an outpatient earlier this week but having ongoing symptoms necessitating inpatient need for IV steroids. CT imaging with mild to moderate wall thickening
involving the entire colon consistent with pancolitis on admission. Mild leukocytosis and possibly from her previous oral steroids. Favor ongoing treatment with IV steroids while ruling out infectious causes although seems much less likely and
consistent with worsening disease activity secondary to stopping her RINVOQ and starting her Tremfya (anti-IL23). Of note, no prior history of C. difficile in the past.
Recommendations:
- Okay with CLD, may advance to low-fiber, low-residue diet
- C Diff (-), Cryptosporidium/Giardia (-), pending stool culture
- Continue IV Methylpred 20 mg TiD (09/20- ), will transition to oral steroids tomorrow with monitoring for 24 hrs to prevent re-admission
- Empiric PPI 40 mg BiD given mild gastritis noted on CT imaging
- Monitor leukocytosis, defer antibiotics at this time and likely reactive versus steroid-induced from her prior oral steroids
- Trend serial CRPs q 48 hrs, CRP remain wnl
- No plans for any flex-sig/colonoscopy at this time
- She will be due for her next dose of Temfya (injection) next Sunday on 09/24 and hopeful for discharge prior to this so she may receive her second dose of induction therapy
- Will discuss with her IBD physician (Dr. Armstrong) early next week as well
- Minimize opioids as much as possible, okay with Bentyl and standing acetaminophen
- Ensure chemical VTE ppx while inpatient given IBD
- Rest of care as per primary team
GI will continue to follow. Please call with any questions/concerns.
Subjective
Subjective
Date of Service: September 22, 2024
- C Diff (-), Cryptosporidium/Giardia (-), pending stool culture
- Remains on IV Methylpred 20 mg q8 hrs (09/20- )
- CRP < 5
- No acute events overnight
Resting comfortably, feeling better this AM with improving abdominal pain while on IV steroids. Had small amount of bloody diarrhea, but with more formed stools. No other nausea/vomiting. Hoping to try more solid food today.
Objective
Data Reviewed
Laboratory Data:
Laboratory Results
Magnesium 2.2 mg/dl (1.6-2.3) 09/21/24 06:20
Total Bilirubin 0.4 mg/dl (0.2-1.3) 09/21/24 06:20
AST 20 U/L (14-36) 09/21/24 06:20
ALT 16 U/L (0-35) 09/21/24 06:20
Alkaline Phosphatase 52 U/L (38-126) 09/21/24 06:20
Vital Signs and I&O:
Vital Signs
Temp Pulse Resp BP Pulse Ox
98.4 F 58 16 117/72 100
09/21/24 23:19 09/21/24 23:19 09/21/24 23:19 09/21/24 23:19 09/22/24 04:52
I&O
09/20/24 09/21/24 09/22/24
06:59 06:59 06:59
Intake Total 1680 / 1680
Balance 1680 / 1680
Physical Exam
Physical Exam
HEENT: Anicteric and Moist mucous membranes
Pulmonary: Other (Normal WOB on room air)
GI: Soft, Non Distended and Non Tender
Extremities: No Edema
Neuro: Non Focal
[2024-09-22 07:30] VITALS: BP 111/81
[2024-09-22 08:04] LABS: Hematocrit 37.6 % (37.0-47.0); Hemoglobin 13.1 g/dL (12.0-16.0); Mean Corp Hgb Conc. 34.8 g/dL (33.0-37.0); Mean Corpuscular Volume 91.9 fL (81.0-99.0); Platelet Count 218 10^3/uL (130-400); Red Cell Dist. Width 11.7 % (11.5-14.5)
--- NOTE | 2024-09-22 08:35 | W.PN.HOSP.TC ---
Today's Communication/Plan
-
IV steroids. Advancing diet
Assessment / Plan
Assessment / Plan
Physical exam:
General: Well Developed, Well Nourished and No Apparent Distress
HEENT: Normocephalic, Atraumatic and Moist Mucous Membranes
Respiratory: Clear to Auscultation; Negative Wheezes, Rales or Rhonchi
Cardiac: Regular Rhythm and S1/S2
GI: Soft, Nontender and Nondistended
Musculoskeletal: No Clubbing, No Cyanosis and No Edema
Neuro: Awake, Alert and Oriented
Psych: Calm
A/P:
Crohn's flare:
Continue IV steroids, Solu-Medrol 30 mg IV every 8 hours
Advance to low residue diet today
On Bentyl as needed and acetaminophen
On probiotic
GI consult and follow-up appreciated
Temfya as outpatient
Discharge planning once cleared by GI
Acute gastritis:
Continue IV Protonix 40 mg twice a day
DVT prophylaxis:
Lovenox SQ
CODE STATUS:
Full code
Time spent 35-minute
Anticipated Discharge: 24 - 48 hours
Subjective/Interval History
-
Date of Service: September 22, 2024
Patient feels better overall, less abdominal pain. No nausea or vomiting. Mild bloody bowel movement
Objective Data
-
Labs:
Laboratory Results
09/22/24
07:15
WBC 11.7 H
Hgb 13.1
Hct 37.6
Plt Count 218
Sodium Pending
Potassium Pending
Chloride Pending
Carbon Dioxide Pending
BUN Pending
Creatinine Pending
Glucose Pending
Calcium Pending
Total Bilirubin Pending
AST Pending
ALT Pending
Alkaline Phosphatase Pending
Vital Signs:
Vital Signs
Temp Pulse Resp BP Pulse Ox
98.2 F 59 14 111/81 97
09/22/24 07:30 09/22/24 07:30 09/22/24 07:30 09/22/24 07:30 09/22/24 07:30
I&O
09/21/24 09/22/24 09/23/24
06:59 06:59 06:59
Intake Total 2200 / 2200
Balance 2200 / 2200
[2024-09-22] MEDS: ULTRAM 50 MG PO ×2 (08:39→22:29)
[2024-09-22] MEDS: TYLENOL 650 MG PO ×3 (08:39→17:52)
[2024-09-22] MEDS: CLARITIN 10 MG PO (08:39)
[2024-09-22] MEDS: BENTYL 10 MG PO (08:39)
[2024-09-22] MEDS: VISBIOME 1 CAP PO (08:39)
[2024-09-22] MEDS: PROTONIX IV 40 MG IV ×2 (08:40→19:54)
[2024-09-22] MEDS: NSS (PRESERVATIVE FREE) 10 ML IV ×2 (08:40→19:54)
[2024-09-22 08:44] LABS: ALT (SGPT) 15 U/L (0-35); AST (SGOT) 18 U/L (14-36); Albumin 4.3 g/dl (3.5-5.0); Alkaline Phosphatase 45 U/L (38-126); Blood Urea Nitrogen 9 mg/dl (7-17); Calcium 9.2 mg/dl (8.4-10.2); Carbon Dioxide 27 mmol/L (22-30); Chloride 103 mmol/L (98-107); Glucose 106 mg/dl (70-99); Magnesium 2.2 mg/dl (1.6-2.3); Potassium 4.4 mmol/L (3.5-5.1); Sodium 137 mmol/L (135-145); Total Protein 6.9 g/dl (6.3-8.2); eGFR > 60.00
--- NOTE | 2024-09-22 10:23 | PTCARENOTE ---
pt aaox3. states pain in abd with cramping. meds given as ordered. pt ambulates to bathroom. has had form stool with little to no blood. diet advanced as ordered. reviewed medications ordered and plan of care with pt.
--- NOTE | 2024-09-22 11:22 | CM ---
Reviewed the chart notes. Diet advanced to low residue. Continues with IV steroids today and plan is to transition on to oral tomorrow. CM continues to be available to patient/family and is monitoring medical plan for needs at discharge.
Plan: Discharge to home when medically stable.
[2024-09-22 15:25] VITALS: BP 109/64
[2024-09-22] MEDS: LOVENOX 40 MG SC (17:52)
[2024-09-22] MEDS: BENADRYL 25 MG PO (22:30)
[2024-09-22 23:27] VITALS: BP 133/81
[2024-09-23] MEDS: SOLU-MEDROL PF 20 MG IV ×2 (00:35→08:11)
[2024-09-23] MEDS: DILAUDID 0.25 MG IV (00:37)
[2024-09-23] MEDS: TYLENOL PO ×2 (00:37→04:30)
[2024-09-23] MEDS: MELATONIN 3 MG PO (00:47)
--- NOTE | 2024-09-23 06:01 | W.PN.GI.CBS2 ---
Today's Communication / Plan
-
Start oral prednisone today and favor inpatient monitoring for 24 hrs. If ongoing improvement, likely d/c tomorrow with close outpatient f/u with her primary GI/IBD specialist. See rest of care as outlined below.
Assessment / Plan
-
Ms Sutton is a 33 y.o female with a past medical history of OCD, POTS, and Crohn's colitis (diagnosed 11 years ago, recently started on Tremfya08/27/2024) who presented to the ED with abdominal pain and diarrhea. Found to have mild to moderate wall
thickening throughout the entire colon concerning for Crohn's flare for which GI has been consulted for further evaluation and management.
#Abdominal Pain #Diarrhea 03/30
#Crohn's Flare
#Hx of Crohn's Colitis (dx 11 years ago, recently started on Tremfya 08/2024)
Impression: Patient presenting with symptoms consistent with her Crohn's flare in setting of recently stopping her RINVOQ (mid-August) and starting Tremfya on 08/27/2024. She was previously in remission with RINVOQ in the past which was started back
on 11/2023. However, in hopes of becoming again (as she has had prior miscarriage in the past) her RINVOQ was discontinued as contraindicated in and was started on Tremfya. Would not consider this a treatment failure as she only
received her first induction dose back on 08/27/2024. Was started on oral Prednisone 40 mg as an outpatient earlier this week but having ongoing symptoms necessitating inpatient need for IV steroids. CT imaging with mild to moderate wall thickening
involving the entire colon consistent with pancolitis on admission. Mild leukocytosis and possibly from her previous oral steroids. Favor ongoing treatment with IV steroids while ruling out infectious causes although seems much less likely and
consistent with worsening disease activity secondary to stopping her RINVOQ and starting her Tremfya (anti-IL23). Of note, no prior history of C. difficile in the past.
Recommendations:
- Continue low-fiber, low-residue diet as tolerated
- C Diff (-), Cryptosporidium/Giardia (-), and stool culture (-)
- Continue IV Methylpred 20 mg TiD (09/20- ), will transition to oral steroids later this afternoon
- Discussed monitoring for 24 hrs after transition to oral steroids for prevention of re-admission
- Empiric PPI 40 mg BiD given mild gastritis noted on CT imaging
- Monitor leukocytosis, defer antibiotics at this time and likely reactive versus steroid-induced from her prior oral steroids
- Trend serial CRPs q 48 hrs, CRP remain wnl (< 5)
- No plans for any flex-sig/colonoscopy at this time
- She will be due for her next dose of Temfya (injection) this Sunday on 09/24 and hopeful for discharge prior to this so she may receive her second dose of induction therapy
- Will message her primary GI/IBD as well (f/w Dr. Armstrong at [facility])
- Minimize opioids as much as possible, okay with Bentyl and standing acetaminophen
- Ensure chemical VTE ppx while inpatient given IBD
- Rest of care as per primary team
GI will continue to follow. Please call with any questions/concerns.
Subjective
Subjective
Date of Service: September 23, 2024
- No acute events overnight
- Repeat CRP wnl (< 5)
Feeling better this AM, able to tolerate more solid food yesterday. No further bloody stools although still with some diarrhea. No other fevers or chills.
Objective
Data Reviewed
Laboratory Data:
Laboratory Results
Phosphorus 5.0 mg/dl (2.5-4.5) H 09/22/24 07:15
Magnesium 2.2 mg/dl (1.6-2.3) 09/22/24 07:15
Total Bilirubin 0.4 mg/dl (0.2-1.3) 09/22/24 07:15
AST 18 U/L (14-36) 09/22/24 07:15
ALT 15 U/L (0-35) 09/22/24 07:15
Alkaline Phosphatase 45 U/L (38-126) 09/22/24 07:15
Vital Signs and I&O:
Vital Signs
Temp Pulse Resp BP Pulse Ox
98.3 F 59 18 133/81 99
09/22/24 23:27 09/22/24 23:27 09/22/24 23:27 09/22/24 23:27 09/22/24 23:27
I&O
09/21/24 09/22/24 09/23/24
06:59 06:59 06:59
Intake Total 2199 / 2199
Balance 2199
Physical Exam
Physical Exam
HEENT: Anicteric and Moist mucous membranes
Pulmonary: Other (Normal WOB on room air)
GI: Soft, Non Distended and Non Tender
Extremities: No Edema
Neuro: Non Focal
[2024-09-23 07:00] VITALS: BP 127/77
[2024-09-23 07:16] LABS: Hematocrit 38.9 % (37.0-47.0); Hemoglobin 13.4 g/dL (12.0-16.0); Mean Corp Hgb Conc. 34.4 g/dL (33.0-37.0); Mean Corpuscular Volume 92.4 fL (81.0-99.0); Platelet Count 237 10^3/uL (130-400); Red Cell Dist. Width 11.8 % (11.5-14.5)
[2024-09-23 07:46] LABS: C-Reactive Protein < 5.00 mg/L (0.0-10.00)
[2024-09-23 07:48] LABS: Blood Urea Nitrogen 8 mg/dl (7-17); Calcium 9.1 mg/dl (8.4-10.2); Carbon Dioxide 29 mmol/L (22-30); Chloride 102 mmol/L (98-107); Glucose 114 mg/dl (70-99); Potassium 4.5 mmol/L (3.5-5.1); Sodium 139 mmol/L (135-145); eGFR > 60.00
[2024-09-23] MEDS: VISBIOME 1 CAP PO (08:12)
[2024-09-23] MEDS: NSS (PRESERVATIVE FREE) 10 ML IV (08:12)
[2024-09-23] MEDS: ULTRAM 50 MG PO ×2 (08:12→21:23)
[2024-09-23] MEDS: BENTYL 10 MG PO (08:12)
[2024-09-23] MEDS: PROTONIX IV 40 MG IV (08:12)
[2024-09-23] MEDS: TYLENOL 650 MG PO ×4 (08:13→21:14)
[2024-09-23] MEDS: CLARITIN 10 MG PO (08:13)
--- NOTE | 2024-09-23 10:41 | CM ---
Reviewed the chart notes. Oral prednisone started. CM continues to be available to patient/family and is monitoring medical plan for needs at discharge.
Plan: Discharge to home when medically stable.
--- NOTE | 2024-09-23 11:19 | W.PN.HOSP.TC ---
Today's Communication/Plan
-
Steroids
Assessment / Plan
Assessment / Plan
Physical exam:
General: Well Developed, Well Nourished and No Apparent Distress
HEENT: Normocephalic, Atraumatic and Moist Mucous Membranes
Respiratory: Clear to Auscultation; Negative Wheezes, Rales or Rhonchi
Cardiac: Regular Rhythm and S1/S2
GI: Soft, Nontender and Nondistended
Musculoskeletal: No Clubbing, No Cyanosis and No Edema
Neuro: Awake, Alert and Oriented, no neurological deficit
Psych: Calm
A/P:
Crohn's flare:
Change IV steroids to oral steroids today
Tolerating low residue diet today
On Bentyl as needed and acetaminophen
On probiotic
GI consult and follow-up appreciated
Temfya as outpatient
Discharge planning once cleared by GI--> GI recommended discharge tomorrow if improving
Acute gastritis:
Continue IV Protonix 40 mg twice a day--> switch to oral
DVT prophylaxis:
Lovenox SQ
CODE STATUS:
Full code
Time spent 35-minute
Anticipated Discharge: Within 24 hours
Subjective/Interval History
-
Date of Service: September 23, 2024
Patient is abdominal pain is improving. No nausea or vomiting. No bloody bowel movement. Afebrile
Objective Data
-
Labs:
Laboratory Results
09/23/24
06:40
WBC 12.0 H
Hgb 13.4
Hct 38.9
Plt Count 237
Sodium 139
Potassium 4.5
Chloride 102
Carbon Dioxide 29
BUN 8
Creatinine 0.6
Glucose 114 H
Calcium 9.1
Vital Signs:
Vital Signs
Temp Pulse Resp BP Pulse Ox
98.1 F 63 24 127/77 98
09/23/24 07:00 09/23/24 07:00 09/23/24 07:00 09/23/24 07:00 09/23/24 07:00
I&O
09/22/24 09/23/24 09/24/24
06:59 06:59 06:59
Intake Total 2199
Balance 2199
[2024-09-23] MEDS: DELTASONE 40 MG PO (12:05)
[2024-09-23 15:02] VITALS: BP 109/77
[2024-09-23] MEDS: LOVENOX 40 MG SC (16:56)
[2024-09-23] MEDS: BENADRYL 25 MG PO (21:14)
[2024-09-23] MEDS: PROTONIX 40 MG PO (21:14)
[2024-09-23 23:20] VITALS: BP 121/79
[2024-09-24] MEDS: TYLENOL PO ×2 (00:25→03:50)
--- NOTE | 2024-09-24 05:55 | W.PN.GI.CBS2 ---
Today's Communication / Plan
-
Continues to improve while transitioning to oral Prednisone. Would continue Pred 40 mg once daily after discharge and can be tapered by her primary GI. Encouraged close outpatient f/u as scheduled and will be due for her next dose of Tremfya this
afternoon in hopes of achieving remission. See rest of care as outlined below. GI will sign-off, please recontact with any questions/concerns.
Assessment / Plan
-
Ms Sutton is a 33 y.o female with a past medical history of OCD, POTS, and Crohn's colitis (diagnosed 11 years ago, recently started on Tremfya08/27/2024) who presented to the ED with abdominal pain and diarrhea. Found to have mild to moderate wall
thickening throughout the entire colon concerning for Crohn's flare for which GI has been consulted for further evaluation and management.
#Abdominal Pain #Diarrhea 03/30
#Crohn's Flare
#Hx of Crohn's Colitis (dx 11 years ago, recently started on Tremfya 08/2024)
Impression: Patient presenting with symptoms consistent with her Crohn's flare in setting of recently stopping her RINVOQ (mid-August) and starting Tremfya on 08/27/2024. She was previously in remission with RINVOQ in the past which was started back
on 11/2023. However, in hopes of becoming again (as she has had prior miscarriage in the past) her RINVOQ was discontinued as contraindicated in and was started on Tremfya. Would not consider this a treatment failure as she only
received her first induction dose back on 08/27/2024. Was started on oral Prednisone 40 mg as an outpatient earlier this week but having ongoing symptoms necessitating inpatient need for IV steroids. CT imaging with mild to moderate wall thickening
involving the entire colon consistent with pancolitis on admission. Mild leukocytosis and possibly from her previous oral steroids. Favor ongoing treatment with IV steroids while ruling out infectious causes although seems much less likely and
consistent with worsening disease activity secondary to stopping her RINVOQ and starting her Tremfya (anti-IL23). Of note, no prior history of C. difficile in the past.
Recommendations:
- Continue low-fiber, low-residue diet as tolerated
- C Diff (-), Cryptosporidium/Giardia (-), and stool culture (-)
- Continue oral Prednisone 40 mg once daily and okay to discharge on this. Can be tapered eventually as an outpatient
- Pantoprazole 40 mg once daily
- Trend serial CRPs q 48 hrs, CRP remain wnl (< 5)
- She will be due for her next dose of Temfya (injection) today on 09/24- second dose of induction therapy
- Discussed with her primary GI/IBD physician yesterday on 09/23 (Dr. Armstrong) and agreeable with the plan along with eventually tapering her prednisone as outpatient
- Minimize opioids as much as possible, okay with Bentyl and standing acetaminophen
- Ensure chemical VTE ppx while inpatient given IBD
- Rest of care as per primary team
Discussed with internal medicine team. GI will sign-off, please recontact with any questions or concerns.
Subjective
Subjective
Date of Service: September 24, 2024
- Transitioned to oral Prednisone on 09/23
- Otherwise, no acute events overnight
Feeling much better this AM, although still with mild abdominal discomfort but significantly improved. Had one looser stool with mucus overnight but without any bloody diarrhea. Tolerating diet without any difficulty. Discussed with her GI/IBD
physician yesterday afternoon on 09/23 regarding plan (f/w Dr. Dhruv Armstrong at [facility]).
Objective
Data Reviewed
Laboratory Data:
Laboratory Results
09/23/24 06:40
09/23/24 06:40
Laboratory Results
Phosphorus 5.0 mg/dl (2.5-4.5) H 09/22/24 07:15
Magnesium 2.2 mg/dl (1.6-2.3) 09/22/24 07:15
Total Bilirubin 0.4 mg/dl (0.2-1.3) 09/22/24 07:15
AST 18 U/L (14-36) 09/22/24 07:15
ALT 15 U/L (0-35) 09/22/24 07:15
Alkaline Phosphatase 45 U/L (38-126) 09/22/24 07:15
Vital Signs and I&O:
Vital Signs
Temp Pulse Resp BP Pulse Ox
97.8 F 56 16 121/79 98
09/23/24 23:20 09/23/24 23:20 09/23/24 23:20 09/23/24 23:20 09/23/24 23:20
I&O
09/22/24 09/23/24 09/24/24
06:59 06:59 06:59
Intake Total 2199 / 2199 540 / 540
Balance 2199 / 2199 540 / 540
Physical Exam
Physical Exam
HEENT: Anicteric and Moist mucous membranes
Pulmonary: Other (Normal WOB on room air)
GI: Soft, Non Distended and Non Tender
Extremities: No Edema
Neuro: Non Focal
[2024-09-24 07:30] VITALS: BP 117/79
[2024-09-24] MEDS: TYLENOL 650 MG PO (07:36)
[2024-09-24] MEDS: VISBIOME 1 CAP PO (07:36)
[2024-09-24] MEDS: DELTASONE 40 MG PO (07:36)
[2024-09-24] MEDS: CLARITIN 10 MG PO (07:36)
[2024-09-24] MEDS: PROTONIX 40 MG PO (07:36)
--- NOTE | 2024-09-24 09:48 | CM ---
Reviewed the chart notes. CM continues to be available to patient/family and is monitoring medical plan for needs at discharge.
Plan: Discharge to home when medically stable. No needs anticipated.
--- NOTE | 2024-09-24 10:39 | W.PN.HOSP.TC ---
Today's Communication/Plan
-
Discharge planning today
Assessment / Plan
Assessment / Plan
Physical exam:
General: Well Developed, Well Nourished and No Apparent Distress
HEENT: Normocephalic, Atraumatic and Moist Mucous Membranes
Respiratory: Clear to Auscultation; Negative Wheezes, Rales or Rhonchi
Cardiac: Regular Rhythm and S1/S2
GI: Soft, Nontender and Nondistended
Musculoskeletal: No Clubbing, No Cyanosis and No Edema
Neuro: Awake, Alert and Oriented, no neurological deficit
Psych: Calm
A/P:
Crohn's flare:
Continue oral steroids and tapering as outpatient
Tolerating low residue diet today
On Bentyl as needed and acetaminophen
On probiotic
GI consult and follow-up appreciated
Temfya as outpatient
Discharge planning today and cleared by GI
Acute gastritis:
Continue IV Protonix 40 mg twice a day--> switched to oral once a day upon d/c
DVT prophylaxis:
Lovenox SQ
CODE STATUS:
Full code
Anticipated Discharge: Today
Subjective/Interval History
-
Date of Service: September 24, 2024
No new complaints. Feels better overall
Objective Data
-
Vital Signs:
Vital Signs
Temp Pulse Resp BP Pulse Ox
98.3 F 58 18 117/79 98
09/24/24 07:30 09/24/24 07:30 09/24/24 07:30 09/24/24 07:30 09/24/24 07:30
I&O
09/23/24 09/24/24 09/25/24
06:59 06:59 06:59
Intake Total 1967 540 / 540
Balance 1967 540 / 540
--- NOTE | 2024-09-24 10:41 | W.DCSUMMARY ---
Discharge Summary
Discharge Data
Date of Admission: 09/20/24
Date of Discharge: 09/24/24
-
Pending Results: No
Hospital Course
Patient 33 years old female history of OCD, POTS, Crohn's, came into the hospital with abdominal pain and diarrhea and bloody bowel movements found to have acute Crohn's flare. GI consulted. She was started on IV steroids and PPI. Her stool
studies were negative for any active infection. Of note, her flare coincides when there was an attempt to transition her from one biological to another as outpatient due to fertility reasons. Patient was advance her diet slowly. Her GI symptoms
also improved over the course of the next several days. She was able to be transitioned to oral steroids. GI has cleared her for discharged today. We will keep her on same dose of steroids for the next 2 to 3 weeks and then will have her GI taper
her steroids as outpatient after that timeframe as recommended by GI. Otherwise no other events were noticed. She will be discharged in relatively stable condition today.
Discharge Plan
-
Patient Disposition: Home (Routine Discharge)
Discharge Diagnosis/Procedures: Acute Crohn's flare. Acute gastritis.
Diet: Low Cholesterol
Activity: As tolerated
Blood Work: Please PCP to order CBC, BMP within 1 to 2 weeks
Referrals:
Osman Eli MD [Family Provider, Internal Medicine] - in less than 1 week
Ronaldo Chu DO [Active, Gastroenterology] - in two to four weeks
Prescriptions:
New
prednisone 20 mg Tablet
40 mg PO DAILY 21 Days Qty: 42 0RF
pantoprazole 40 mg Tablet,Delayed Release (Dr/Ec)
40 mg PO DAILY 30 Days Qty: 30 0RF
Continued
fexofenadine 180 mg Tablet
180 mg PO DAILY
acetaminophen 500 mg Tablet
1,000 mg PO DAILYPRN PRN (Reason: mild pain)
triamcinolone acetonide 0.1 % cream
1 applic TOPICAL BIDPRN PRN (Reason: rash)
zinc gluconate 30 mg Tablet
30 mg PO DAILY
diphenhydramine HCl [Benadryl] 25 mg Capsule
25 mg PO HS
sertraline 25 mg tablet
25 mg PO DAILYPRN PRN (Reason: nausea)
dicyclomine 10 mg Capsule
10 mg PO QIDPRN PRN (Reason: cramps)
Patient Comments:
last filled at [id number] 05/13/23
Visbiome 112.5 billion cell Capsule
1 cap PO DAILY
omega 1-zxb-tah-fish oil 900-1,400 mg Capsule,Delayed Release(Dr/Ec)
1 cap PO DAILY
IBgard 90 mg Capsule,Delayed,Extend.Release
90 mg PO DAILY
28-800 mg-mcg Tablet
1 tab PO DAILY
turmeric 400 mg Capsule
400 mg PO DAILY
Hair, Skin And Nails (Herbs) 120-1,250-60 mcg Capsule
1 cap PO DAILY
Tremfya Pen 200 mg/2 mL Pen Injector
400 mg SC Q4W
Patient Comments:
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 Next dose is due 09/24/24
Ladywell Daily Hormone Balance
2 cap PO DAILY
Patient Comments:
contains chasteberry, ashwagandha root, kumar root, fu ling poria mushroom, turkey tail whole mushroom powder, dong quai root, saw palmetto, shatavari root, saffron stigma, black pepper, BCAA, magnesium, vitamin B12, vitamin B3, vitamin B6,
vitamin B2
Discontinued
prednisone 10 mg tablet
40 mg PO DAILYPRN PRN (Reason: crohn's flare)
Discharge Orders:
Discharge Patient (As Directed); Ordered 09/24/24
Ordered By: James Solo
Discharge Date and Time
Discharge Date/Time: 09/24/24 11:29
Print Language: CZECH
== END 2024-09-24 11:29 | disposition home or self-care (01) | DRG 387 ==
LOC: 2 NORTH 14:35
PROVIDERS: Registered Nurse; ADMITTING PHYSICIAN Internal Medicine; ATTENDING PHYSICIAN Hospitalist; CONSULT PHYSICIAN Student in an Organized Health Care Education/Training Program; EMERGENCY PHYSICIAN Student in an Organized Health Care Education/Training Program; FAMILY PHYSICIAN Internal Medicine
DX: K50.111 Crohn's disease of large intestine with rectal bleeding (principal); K29.00 Acute gastritis without bleeding; D72.829 Elevated white blood cell count, unspecified; F42.9 Obsessive-compulsive disorder, unspecified; G90.A Postural orthostatic tachycardia syndrome [POTS]
CPT/HCPCS: 74177; 80048; 80053; 81003; 83735; 84100; 84703; 85025; 85027; 86140; 87045; 87046; 87324; 87328; 87329; 87427; 87449; 93005; 96360; 99285; Q9967